=== PATIENT | male | born 1940 | race Caucasian/White ===

== ENCOUNTER 2017-05-07 21:32 | Inpatient (IN) | payer MEDICARE, BC ==
[~2017-05-07] VITALS: Ht 182.9 cm; Wt 100.0 kg
[~2017-05-07 21:32] MED LIST: ACCOLATE10 MG PO; ALTACE5 M2 OR; ALTACE5 MG PO; ASPIRIN EC81 MG PO; ASPIRIN LOW DOS81 M2 PO; BABY ASPIRIN81 MG OR; BRILINTA90 MG PO; CALCIUM +1 PO; CALCIUM D- OR; CINNAMON500 MG OR; CO Q 10100 MG PO; CO Q-10100 MG PO; COUMADIN4 MG PO; EFFIENT10 MG PO; FERROUS SULF325 M2 PO; FERROUS SULFAT325 MG PO; FISH OIL1000 MG PO; FLAXSEED OIL1200 MG OR; GLIMEPIRIDE2 MG PO; GLYBURIDE1.25 MG OR; JANTOVEN7.5 MG; JANUVIA100 MG PO; LANOXIN0.25 MG OR; LEVOTHYROXIN50 MCG PO; LISINOPRIL20 MG PO; LORTAB 10 PO; Levaquin PO; METAN3 PO; METFORMIN500 M1 OR; METFORMIN500 M2 PO; METOPROLOL25 MG OR; MULTI VIT PO; OMEGA-1 PO; PANTOPRAZOLE SO40 MG PO; PLAVIX75 MG OR; PREVACID15 M1; PREVACID30 M3 PO; PRILOSEC20 MG PO; PROSTAT1 PO; PROSTATE 2.4 PO; RAPAFLO8 MG PO; SMZ-TMP DS1 TAB PO; SOTALOL HCL80 MG PO; STOOL SOFTENER100 MG PO; SYNTHROID50 MCG PO; TENORMIN PO; VITAMIN B-12500 MCG PO; VITAMIN C1000 MG PO; WAL-ZYR10 MG PO; WARFARIN4 MG PO; ZINC50 M1 PO; ZITHROMAX250 MG PO
[2017-05-07] MEDS ORDERED: TAMSULOSIN0.4 MG PO (21:54)
[2017-05-07] MEDS ORDERED: VITAMIN D-31000 UNI1 PO (21:56)
[2017-05-07 22:12] LABS: HEMATOCRIT 45.4 % (39.0-50.0); HEMOGLOBIN 15.4 g/dl (14.0-18.0); IMMATURE GRANULOCYTES 0.3 % (0.0-1.0); MEAN CELL VOLUME 81.8 fL CALC (80.0-100.0); MEAN CORPUSCULAR HGB 27.7 pG CALC (26.0-32.0); MEAN CORPUSCULAR HGB CONC 33.9 g/L CALC (32.0-36.0); NEUT# 11.49 thou/uL (1.82-7.42); RED BLOOD COUNT 5.55 mill/uL (4.70-6.10); RED CELL DISTRI WIDTH 14.7 % (11.5-15.5)
[2017-05-07 22:22] LABS: ANION GAP 24 (6-22 (CALC)); BUN 18 mg/dL (8-23); BUN/CREATININE RATIO 14 (12-20 (CALC)); CARBON DIOXIDE 18 mmol/l (22-30); CHLORIDE 106 mmol/l (95-108); CREATININE 1.3 mg/dL (0.7-1.3); GFR 53 ML/MIN (>=60 (CALC)); GFR FOR AFR.AMER. > 60 ML/MIN (>=60 (CALC)); INFLUENZA A NONE DETECTED (NONE DETECT); INFLUENZA B NONE DETECTED (NONE DETECT); POTASSIUM 4.2 mmol/l (3.5-5.1); SODIUM 143 mmol/l (137-146)
[2017-05-07 23:22] LABS: URINE BILIRUBIN - DIPSTICK NEGATIVE (NEGATIVE); URINE BLOOD DIPSTICK SMALL (NEGATIVE); URINE COLOR YELLOW; URINE GLUCOSE - DIPSTICK NEGATIVE (NEGATIVE); URINE KETONE NEGATIVE (NEGATIVE); URINE LEUK ESTERASE NEGATIVE (NEGATIVE); URINE NITRITE - DIPSTICK NEGATIVE (Negative); URINE PH 5.5 (4.5-8.0); URINE PROTEIN - DIPSTICK 100 mg/dL (NEG-TRACE); URINE SPECIFIC GRAVITY >=1.030; URINE UROBILINOGEN - DIPSTICK 0.2 E.U./dL (0.2)
[2017-05-07 23:24] LABS: URINE CLARITY CLEAR
[2017-05-07 23:36] LABS: URINE BACTERIA FEW hpf; URINE RBC 0-2 RBC/hpf (0-5); URINE SQUAMOUS EPITHELIAL CELL FEW EPI/hpf (0-FEW); URINE WBC 0-2 WBC/hpf (0-5)
[2017-05-07 23:37] LABS: URINE FINE GRAN CAST FEW lpf; URINE HYALINE CAST FEW lpf (NONE-RARE); URINE MUCUS FEW hpf (NONE-FEW)
[2017-05-08] VITALS (13 sets, daily range): BP systolic 89–166; BP diastolic 50–79
[2017-05-08 07:23] LABS: HEMOGLOBIN 13.1 g/dl (14.0-18.0); MEAN CELL VOLUME 81.8 fL CALC (80.0-100.0); MEAN CORPUSCULAR HGB 27.5 pG CALC (26.0-32.0); MEAN CORPUSCULAR HGB CONC 33.6 g/L CALC (32.0-36.0); NEUT# 17.41 thou/uL (1.82-7.42); RED BLOOD COUNT 4.77 mill/uL (4.70-6.10); RED CELL DISTRI WIDTH 14.6 % (11.5-15.5)
[2017-05-08 07:37] LABS: ANION GAP 19 (6-22 (CALC)); BUN 18 mg/dL (8-23); BUN/CREATININE RATIO 15 (12-20 (CALC)); CARBON DIOXIDE 16 mmol/l (22-30); CHLORIDE 110 mmol/l (95-108); CREATININE 1.2 mg/dL (0.7-1.3); GFR 59 ML/MIN (>=60 (CALC)); GFR FOR AFR.AMER. > 60 ML/MIN (>=60 (CALC)); POTASSIUM 4.5 mmol/l (3.5-5.1); SODIUM 141 mmol/l (137-146)
[2017-05-09] VITALS (9 sets, daily range): BP systolic 132–171; BP diastolic 62–82
[2017-05-09 05:38] LABS: HEMATOCRIT 34.7 % (39.0-50.0); HEMOGLOBIN 11.7 g/dl (14.0-18.0); IMMATURE GRANULOCYTES 0.4 % (0.0-1.0); MEAN CORPUSCULAR HGB CONC 33.7 g/L CALC (32.0-36.0); NEUT# 11.97 thou/uL (1.82-7.42); RED BLOOD COUNT 4.18 mill/uL (4.70-6.10); RED CELL DISTRI WIDTH 15.1 % (11.5-15.5)
[2017-05-09 06:00] LABS: ANION GAP 15 (6-22 (CALC)); BUN 16 mg/dL (8-23); BUN/CREATININE RATIO 16 (12-20 (CALC)); CARBON DIOXIDE 20 mmol/l (22-30); CHLORIDE 113 mmol/l (95-108); CREATININE 1.1 mg/dL (0.7-1.3); GFR > 60 ML/MIN (>=60 (CALC)); GFR FOR AFR.AMER. > 60 ML/MIN (>=60 (CALC)); MAGNESIUM 1.6 mg/dL (1.6-2.3); POTASSIUM 4.1 mmol/l (3.5-5.1); SODIUM 144 mmol/l (137-146)
[2017-05-10 00:24] VITALS: BP 137/64
[2017-05-10 05:30] VITALS: BP 150/70
[2017-05-10 05:45] LABS: HEMATOCRIT 37.1 % (39.0-50.0); HEMOGLOBIN 12.4 g/dl (14.0-18.0); MEAN CELL VOLUME 83.2 fL CALC (80.0-100.0); MEAN CORPUSCULAR HGB 27.8 pG CALC (26.0-32.0); MEAN CORPUSCULAR HGB CONC 33.4 g/L CALC (32.0-36.0); RED BLOOD COUNT 4.46 mill/uL (4.70-6.10); RED CELL DISTRI WIDTH 14.8 % (11.5-15.5)
[2017-05-10 05:51] LABS: ANION GAP 16 (6-22 (CALC)); BUN 16 mg/dL (8-23); BUN/CREATININE RATIO 14 (12-20 (CALC)); CARBON DIOXIDE 22 mmol/l (22-30); CHLORIDE 106 mmol/l (95-108); CREATININE 1.1 mg/dL (0.7-1.3); GFR > 60 ML/MIN (>=60 (CALC)); GFR FOR AFR.AMER. > 60 ML/MIN (>=60 (CALC)); POTASSIUM 4.1 mmol/l (3.5-5.1); SODIUM 141 mmol/l (137-146)
[2017-05-10 10:14] VITALS: BP 147/73
[2017-05-10 11:00] VITALS: BP 154/74
[2017-05-10] MEDS ORDERED: ZITHROMAX500 MG PO (13:06)
[2017-05-10] MEDS ORDERED: AUGMENTIN875TAB PO (13:06)
[2017-05-10] MEDS ORDERED: FLORASTOR250 M1 PO (13:06)
[2017-05-10 15:08] VITALS: BP 141/73
[2017-05-10 15:43] VITALS: BP 144/73
== END 2017-05-10 16:57 | disposition home or self-care (01) | DRG 871 ==
LOC: ED 21:32 → ED-I 22:20 → ED 22:55 → ICU 22:56 → MS2 22:56
PROVIDERS: Family Medicine; ADMIT Internal Medicine; ATTEND Internal Medicine
DX: A41.9 Sepsis, unspecified organism (principal); J18.9 Pneumonia, unspecified organism; I11.0 Hypertensive heart disease with heart failure; I48.0 Paroxysmal atrial fibrillation; E11.9 Type 2 diabetes mellitus without complications; I50.22 Chronic systolic (congestive) heart failure; J02.0 Streptococcal pharyngitis; I16.0 Hypertensive urgency; E86.0 Dehydration; I25.10 Atherosclerotic heart disease of native coronary artery without angina pectoris; G47.33 Obstructive sleep apnea (adult) (pediatric); M19.90 Unspecified osteoarthritis, unspecified site; E78.5 Hyperlipidemia, unspecified; E03.9 Hypothyroidism, unspecified; K21.9 Gastro-esophageal reflux disease without esophagitis; Z95.5 Presence of coronary angioplasty implant and graft; Z87.891 Personal history of nicotine dependence; Z88.1 Allergy status to other antibiotic agents; Z79.899 Other long term (current) drug therapy; Z79.84 Long term (current) use of oral hypoglycemic drugs

== ENCOUNTER → 2017-12-27 | Outpatient (REF) | payer MEDICARE, BC ==
[~2017-12-27] MED LIST changes: +AUGMENTIN875TAB PO; +FLORASTOR250 M1 PO; +TAMSULOSIN0.4 MG PO; +VITAMIN D-31000 UNI1 PO; +ZITHROMAX500 MG PO
[2017-12-27 08:46] LABS: TSH, 3RD GENERATION 0.72 uIU/mL (0.47 - 4.68)
[2017-12-29 05:06] LABS: THYROID PEROXIDASE AB_i 9 IU/mL (<9)
== END | disposition home or self-care (01) ==
LOC: LAB 06:58
DX: E05.00 Thyrotoxicosis with diffuse goiter without thyrotoxic crisis or storm (principal)

== ENCOUNTER → 2018-06-02 | Outpatient (REF) | payer MEDICARE, BC ==
[2018-06-02 09:41] LABS: ALBUMIN 4.5 g/dL (3.2-5.0); BILIRUBIN, TOTAL 0.4 mg/dL (0.0-1.4); CHOLESTEROL HDL RATIO 7.3 (<4.4 (CALC)); CREATININE 1.7 mg/dL (0.7-1.3); POTASSIUM 4.4 mmol/l (3.5-5.1); TOTAL PROTEIN 7.5 g/dL (6.3-8.2)
[2018-06-02 10:12] LABS: TSH, 3RD GENERATION 3.27 uIU/mL (0.47 - 4.68)
== END | disposition home or self-care (01) ==
LOC: LAB 07:03
PROVIDERS: ATTEND Internal Medicine
DX: E03.9 Hypothyroidism, unspecified (principal); E55.9 Vitamin D deficiency, unspecified; E78.49 Other hyperlipidemia; I10 Essential (primary) hypertension; E11.65 Type 2 diabetes mellitus with hyperglycemia; E05.00 Thyrotoxicosis with diffuse goiter without thyrotoxic crisis or storm

== ENCOUNTER 2018-12-08 07:46 | Observation (INO) | payer MEDICARE, BC ==
[2018-12-08] VITALS (7 sets, daily range): BP systolic 110–161; BP diastolic 54–72
[~2018-12-08] VITALS: Ht 182.9 cm; Wt 102.0 kg
--- NOTE | 2018-12-08 07:48 | NUR ---
WHEELCHAIR TO ER ROOM 6, TO BED
[2018-12-08 08:09] LABS: HEMATOCRIT 41.1 % (39.0-50.0); HEMOGLOBIN 13.9 g/dl (14.0-18.0); IMMATURE GRANULOCYTES 0.4 % (0.0-5.0); MEAN CELL VOLUME 81.4 fL CALC (80.0-100.0); MEAN CORPUSCULAR HGB 27.5 pG CALC (26.0-32.0); MEAN CORPUSCULAR HGB CONC 33.8 g/L CALC (32.0-36.0); NEUT# 7.17 thou/uL (1.82-7.42); RED BLOOD COUNT 5.05 mill/uL (4.70-6.10); RED CELL DISTRI WIDTH 14.9 % (11.5-15.5)
[2018-12-08 08:36] LABS: ALBUMIN 4.6 g/dL (3.2-5.0); ALKALINE PHOSPHATASE 48 u/l (38-126); ANION GAP 18 (6-22 (CALC)); BILIRUBIN, TOTAL 0.5 mg/dL (0.0-1.4); BUN 19 mg/dL (8-23); BUN/CREATININE RATIO 17 (12-20 (CALC)); CARBON DIOXIDE 21 mmol/l (22-30); CHLORIDE 106 mmol/l (95-108); CREATININE 1.1 mg/dL (0.7-1.3); GFR > 60 ML/MIN (>=60 (CALC)); GFR FOR AFR.AMER. > 60 ML/MIN (>=60 (CALC)); LIPASE 255 u/l (23-300); POTASSIUM 4.6 mmol/l (3.5-5.1); SGOT/AST 37 u/l (19-48); SODIUM 140 mmol/l (137-146)
--- NOTE | 2018-12-08 08:50 | NUR ---
MEDICATED FOR HYPERRTENSION ORDERED AND WARRM BLANKET PROVIDED FOR COMFORT
[2018-12-08 09:35] LABS: URINE BILIRUBIN - DIPSTICK NEGATIVE (NEGATIVE); URINE BLOOD DIPSTICK TRACE-INTACT (NEGATIVE); URINE COLOR YELLOW; URINE GLUCOSE - DIPSTICK NEGATIVE (NEGATIVE); URINE KETONE NEGATIVE (NEGATIVE); URINE LEUK ESTERASE NEGATIVE (NEGATIVE); URINE NITRITE - DIPSTICK NEGATIVE (Negative); URINE PH 5.5 (4.5-8.0); URINE PROTEIN - DIPSTICK 100 mg/dL (NEG-TRACE); URINE SPECIFIC GRAVITY >=1.030; URINE UROBILINOGEN - DIPSTICK 0.2 E.U./dL (0.2)
--- NOTE | 2018-12-08 09:58 | NUR ---
PT AWARE OF PLANNED ADMISSION, OFFERS NO NEW COMPLAINTS, CALL VALDERRAMA WITHIN REACH ROOM ADN TELE BOX ASSIGNED
[2018-12-08] MEDS ORDERED: LISINOPRIL20 MG PO (10:08)
[2018-12-08] MEDS ORDERED: ZYRTEC10 MG PO (10:09)
--- NOTE | 2018-12-08 10:47 | NUR ---
REPORT CALLED TO BABAK DEVINE ON MED SURG
--- NOTE | 2018-12-08 10:55 | NUR ---
PT TRANSPORTED TO [facility] VIA WC ACCOMPIANED BY JONNIE PUCKETT. PT AMBULATED W/ STEADY GAIT. VS DONE. PT A/O X3. SPEECH IS CLEAR. RESP EVEN AND UNLABORED. LUNG SOUNDS CLEAR. TELE IN PLACE. BOWEL SOUNDS ACTIVE X4. PT C/O LUQ ABDOMINAL DISCOMFORT. REPOSITIONED FOR COMFORT. STRONG RADIAL AND PEDAL PULSES. #20 RAC SL. FLUSHED AND PATENT. SITE APPEARS HEALTHY. SKIN INTACT. PT DENIES ANY FURTHER NEEDS. POC DISCUSSED. SAFETY PRECUATIONS IN PLACE. CALL LIGHT IN REACH. WILL CONTINUE TO MONITOR.
--- NOTE | 2018-12-08 10:55 | NUR ---
PT TRANSPORTED TO ROOM 262 VIA WHEELCHAIR, ALL BELONGINGS SENT WITH PT AND TELE BOX [id number] ON PT.
--- NOTE | 2018-12-08 11:15 | NUR ---
ORTHOSTATIC BP COMPLETED ON PT DUE TO PT C/O DIZZINESS WHEN TURNING HEAD AND DIZZINESS PRIOR TO COMING TO HOSPITAL. INSTRUCTED PT TO CALL BEFORE GETTING OUT OF BED; PT VERBALIZES UNDERSTANDING.
--- NOTE | 2018-12-08 12:10 | NUR ---
PT EATING LUNCH ON SIDE OF BED. NO C/O PAIN OR NEEDS. CALL LIGHT IN REACH. WILL CONTINUE TO MONITOR.
[2018-12-08 12:28] LABS: URINE SQUAMOUS EPITHELIAL CELL FEW EPI/hpf (0-FEW)
--- NOTE | 2018-12-08 16:11 | NUR ---
PT RESTING. NO C/O PAIN OR NEEDS. CALL LIGHT IN REACH. WILL CONTINUE TO MONITOR.
--- NOTE | 2018-12-08 16:33 | NUR ---
CALLED DOWN TO OPERATING ROOM REGARDING CONSULTATION ON THIS PT. DR. CHAUHAN WAS NOTIFIED FROM NIKHIL SHAVER IN OR. GAVE HER PT INFO AND WAS TOLD SHE WILL PASS ALONG MESSAGE TO HIM HE IS IN A CASE RIGHT NOW.
--- NOTE | 2018-12-08 19:10 | NUR ---
REPORT FROM BABAK DEVINE. PT SITTING UP IN BED WATCHING TV. NO APPARENT DISTRESS NOTED. PT DENIES ANY PAIN OR DISCOMFORT. IV SITE APPEARS HEALTHY. DISCUSSED POC. PT VERBALIZED UNDERSTANDING. CALL LIGHT WITHIN REACH. WILL CONTINUE TO MONITOR.
--- NOTE | 2018-12-08 23:18 | NUR ---
PT RESTING IN BED WITH EYES CLOSED. EASILY AROUSED. NO APPARENT DISTRESS NOTED. VS STABLE. DENIES ANY PAIN OR DISCOMFORT. CALL LIGHT WITHIN REACH. WILL CONTINUE TO MONITOR.
--- NOTE | 2018-12-09 03:57 | NUR ---
PT RESTING IN BED WITH EYES CLOSED. NO APPARENT DISTRESS NOTED. RESPIRATIONS EVEN AND UNLABORED. CALL LIGHT WITHIN REACH. WILL CONTINUE TO MONITOR.
[2018-12-09 04:59] VITALS: BP 119/61
[2018-12-09 05:35] LABS: CHOLESTEROL HDL RATIO 6.4 (<4.4 (CALC)); MAGNESIUM 1.5 mg/dL (1.6-2.3)
--- NOTE | 2018-12-09 06:45 | NUR ---
REPORT RECEIVED. PT RESTING IN BED. WILL CONTINUE TO MONITOR
[2018-12-09 07:30] VITALS: BP 123/64
--- NOTE | 2018-12-09 07:30 | NUR ---
PT RESTING IN BED AWAKE. PT IS ALERT AND ORIENTED X3. SHIFT ASSESSMENT COMPLETED AT THIS TIME. IV PATENT X1. CALL LIGHT IN REACH. WILL CONTINUE TO MONITOR.
--- NOTE | 2018-12-09 09:20 | NUR ---
Monet ANDRADE APRN AT BEDSIDE TO DISCUSS PLAN OF CARE
[2018-12-09 11:05] VITALS: BP 121/63
--- NOTE | 2018-12-09 11:33 | NUR ---
PT SITTING UP IN BED EATING LUNCH. RESP ARE EVEN AND UNLABORED. NO DISTRESS NOTED. CALL LIGHT IN REACH. WILL CONTINUE TO MONITOR.
--- NOTE | 2018-12-09 12:04 | NUR ---
DR DILL AT BEDSIDE AT THIS TIME TO DISCUSS PLAN OF CARE
[2018-12-09] MEDS ORDERED: TRICOR145 MG PO (12:11)
--- NOTE | 2018-12-09 13:00 | NUR ---
IV site discontinued, cath intact. No edema , no redness, voices no discomfort.
--- NOTE | 2018-12-09 13:40 | NUR ---
DISCHARGE INSTRUCTIONS REVIEWED WITH PATIENT. PATIENT VERBALIZED UDNERSTANDING.
--- NOTE | 2018-12-09 13:44 | NUR ---
Discharge instructions given. Patient verbalizes understanding of same. Discharged in stable condition via Wheelchair to Home with family. All belongings sent with pt.
== END 2018-12-09 13:44 | disposition home or self-care (01) ==
LOC: ED 07:46 → ED-I 09:29 → ED 09:44 → MS2 09:45
PROVIDERS: Family Medicine; ADMIT Internal Medicine; ATTEND Internal Medicine
DX: K80.20 Calculus of gallbladder without cholecystitis without obstruction (principal); I10 Essential (primary) hypertension; E11.9 Type 2 diabetes mellitus without complications; I25.10 Atherosclerotic heart disease of native coronary artery without angina pectoris; I48.91 Unspecified atrial fibrillation; E03.9 Hypothyroidism, unspecified; K21.9 Gastro-esophageal reflux disease without esophagitis; M19.90 Unspecified osteoarthritis, unspecified site; E78.1 Pure hyperglyceridemia; G47.33 Obstructive sleep apnea (adult) (pediatric); Z95.5 Presence of coronary angioplasty implant and graft; Z79.84 Long term (current) use of oral hypoglycemic drugs; Z87.891 Personal history of nicotine dependence; R07.9 Chest pain, unspecified

== ENCOUNTER 2019-04-24 14:16 | Inpatient (IN) | payer MEDICARE, BC ==
[~2019-04-24] VITALS: Ht 182.9 cm; Wt 96.6 kg
[~2019-04-24 14:16] MED LIST changes: +TRICOR145 MG PO; +ZYRTEC10 MG PO
--- NOTE | 2019-04-24 14:26 | NUR ---
PT TO ROOM VIA WC
[2019-04-24 14:52] LABS: HEMATOCRIT 42.7 % (39.0-50.0); IMMATURE GRANULOCYTES 0.7 % (0.0-5.0); MEAN CELL VOLUME 80.1 fL CALC (80.0-100.0); MEAN CORPUSCULAR HGB 26.3 pG CALC (26.0-32.0); MEAN CORPUSCULAR HGB CONC 32.8 g/L CALC (32.0-36.0); NEUT# 5.88 thou/uL (1.82-7.42); RED BLOOD COUNT 5.33 mill/uL (4.70-6.10); RED CELL DISTRI WIDTH 15.2 % (11.5-15.5)
[2019-04-24 15:12] LABS: ANION GAP 17 (6-22 (CALC)); BUN 19 mg/dL (8-23); BUN/CREATININE RATIO 16 (12-20 (CALC)); CARBON DIOXIDE 21 mmol/l (22-30); CHLORIDE 101 mmol/l (95-108); CREATININE 1.2 mg/dL (0.7-1.3); GFR 58 ML/MIN (>=60 (CALC)); GFR FOR AFR.AMER. > 60 ML/MIN (>=60 (CALC)); POTASSIUM 4.7 mmol/l (3.5-5.1); SODIUM 134 mmol/l (137-146)
--- NOTE | 2019-04-24 15:45 | NUR ---
PT PRESENTS WITH PAIN 5-6 WEAKS AGO HE STARTED TO FEEL WEAK AND NOTICED PALLOR IN SKIN COLOR. PT STATES THE SYMPTOMS PROGRESSED THIS MORNING. PT DAUGHTERS STATED HE COULD NOT EVEN WORK. UPON ARRIVAL PT HAD SYMPTOMS OF CRAMPS IN LEGS BILATERALLY. PT HAD A BP WITH SYSTOLIC IN THE 200-210. PT APPEARS TO HAVE SKIN COLOR WNL AND IS AOX4. TORADOL GIVIN FOR PAIN OF CRAMPS. PT NOTIFIED OF BUSY ER AND WAIT TIME. FAMILY AND PT VERBALIZED UNDERSTANDING.
--- NOTE | 2019-04-24 16:30 | NUR ---
COLLECTED URINE. PT WAS SITTING UP IN STRETCHER. EQUIPMENT ATTACHED. PT DENIES ANY OTHER NEEDS. PT ADVISED OF CONTINUED WAIT TIME.
[2019-04-24 16:59] LABS: URINE BILIRUBIN - DIPSTICK NEGATIVE (NEGATIVE); URINE BLOOD DIPSTICK MODERATE (NEGATIVE); URINE COLOR YELLOW; URINE GLUCOSE - DIPSTICK 250 mg/dL (NEGATIVE); URINE KETONE NEGATIVE (NEGATIVE); URINE LEUK ESTERASE NEGATIVE (NEGATIVE); URINE NITRITE - DIPSTICK NEGATIVE (Negative); URINE PH 5.5 (4.5-8.0); URINE PROTEIN - DIPSTICK 100 mg/dL (NEG-TRACE); URINE SPECIFIC GRAVITY >=1.030; URINE UROBILINOGEN - DIPSTICK 0.2 E.U./dL (0.2)
--- NOTE | 2019-04-24 17:06 | NUR ---
PT BP HAS LOWERED TO 178/81 MD NOTIFIED. PT IS SITTING UP IN BED TALKING TO FAMILY WHO ARE AT BEDSIDE. CALL LIGHT WITHIN REACH
[2019-04-24 17:12] LABS: URINE WBC 0-2 WBC/hpf (0-5)
[2019-04-24 17:47] LABS: TSH, 3RD GENERATION 3.86 uIU/mL (0.47 - 4.68)
--- NOTE | 2019-04-24 18:04 | NUR ---
ADMINISTERED LABATALOL AND PT TOLERATED WELL. AFTER 10 MINS A REACHECK WILL BE DONE TO SEE IF IT WAS EFFECTIVE
--- NOTE | 2019-04-24 18:39 | NUR ---
MD IN ROOM TALKING TO PT ABOUT BP THAT DOES NOT WANT TO GO DOWN DISPITE MEDICATION. PT IS NOTIFIED OF PENDING ADMISSION
--- NOTE | 2019-04-24 19:37 | NUR ---
PT CONTINUES TO HAVE HIGH BP AND MD ORDERED ANOTHER DOSE OF LABETALOL. WILL ASSESS LATER FOR CHANGE. PT STATED A PAIN 09/28, MD WAS NOTIFIED SINCE IT COULD ALSO CONTRIBUTE TO BP. PT ORDERED PAIN MED.
--- NOTE | 2019-04-24 20:25 | NUR ---
IT WAS NOTIFIED THAT A BED WAS NOT READY FOR PT OF YET. [employer] APPRENTICE STATED THAT WE WILL BE NOTIFIED SOON IT IS AVAILIABLE
--- NOTE | 2019-04-24 20:33 | NUR ---
SOCKS PLACED ON PT AND SOME WARM BLANKETS APPLIED. PT DENIES ANY FURTHER NEEDS. CALL LIGHT AND PHONE WITHIN REACH
--- NOTE | 2019-04-24 21:37 | NUR ---
PT ADVISED OF PENDING ADMISSION. CALL LIGHT WITHIN REACH. PT REPOSITIONED IN BED
--- NOTE | 2019-04-24 22:11 | NUR ---
REPORT JOB SUNSHINE IN MED SURG
--- NOTE | 2019-04-24 22:15 | NUR ---
PT TRANSPORTED TO MED SURG VIA W/C STABLE AND IN NO DISTRESS. CARE ASSUMED TO MARIO
[2019-04-24 22:21] VITALS: BP 190/73
[2019-04-24 23:13] VITALS: BP 192/88
--- NOTE | 2019-04-24 23:30 | NUR ---
PATIENT ADMITTED FROM ER VIA WHEELCHAIR WITH ER STAFF IN ATTENDANCE. PATIENT TO STANDING SCALE AND THEN TO BED. UNSTEADY ON HIS FEET. PATIENT IS AWAKE ALERT AND ORIENTED, BP IS ELEVATED AND APRESOLINE 10MG IVP GIVEN FOR HTN. TEMP-99.1 AT THIS TIME. PATIENT WITH SHAKES AND CHILLS AT THIS TIME. C/O BLE AND BACK PAIN. PATIENT STATES THAT HE WAS BROUGHT TO THE ER TOODAY BY HI DAUGHTERS AFTER FEELING SEVERE WEAKNESS. WAS SEEN AT CLINIC ON WEDNESDAY BUT CONT TO FEEL EVEN WORSE. PATIENT WITH TELE MONITOR IN PLACE. IV SITE TO RIGHT FOREARM IS INTACT AND HELATHY AT THIS TIME. PATIENT ORIENTED TO ROOM AND SURROUNDINGS. INSTRUTED ON USE OF NURSE CALL LIGHT SYSTEM, TV REMOTE AND PHONE. SAFETY PRECAUTIONS REINFORCED. OFFERED FOOD AND FLUIDS. DECLINES AT THIS TIME.CALL LIGHT IN REACH. WILL CONT TO MONITOR.
--- NOTE | 2019-04-25 00:30 | NUR ---
BP REMAINS ELEVATED. TEMP 101.7-STILL WITH SEVERE PAIN. CALL TO DR. WASSERMAN WITH UPDATE-NEW ORDERS RECIEVED. BLOOD CULTURES WERE DRAWN. 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 PATIENT PLACED ON CONTACT FOR H/O MRSA. IVF STARTED AND INFUSING RIGHT FOREARM AT 75CC/HR. SITE IS HEALTHY AT THIS TIME. MORPHINE 2MG IVP GIVEN FOR DIONE LEG PAIN-10/29. PATIENT MEDICATED FOR HTN WITH CLONODINE 0.1MG PO WITH TYLENOL 650MG PO FOR TEMP. PATIENT VOIDING QS 150CC OF LUCERO URINE IN URINAL FOR HTN. SAFETY PREAUTIONS REINFORCED. CALL LIGHT IN REACH. WILL CONT TO MONITOR.
[2019-04-25 01:57] VITALS: BP 106/53
--- NOTE | 2019-04-25 02:00 | NUR ---
PATIENT RESTING IN BED. APPEAR SLEEPING AT THIS TIME. TEMP IS 98.4 AT THIS TIME. BP DOWN TO 106/53. IVF PATENT ANDINFUSING AT 75CC/HR VIA RIGHT FOREARM SITE. TELE MONITOR IN PLACE. CALL LIGHT IN REACH. WILL CONT TO MONITOR.
[2019-04-25 03:43] VITALS: BP 151/65
[2019-04-25 05:40] LABS: HEMOGLOBIN 12.9 g/dl (14.0-18.0); IMMATURE GRANULOCYTES 0.9 % (0.0-5.0); MEAN CELL VOLUME 79.9 fL CALC (80.0-100.0); MEAN CORPUSCULAR HGB 26.4 pG CALC (26.0-32.0); MEAN CORPUSCULAR HGB CONC 33.1 g/L CALC (32.0-36.0); NEUT# 9.45 thou/uL (1.82-7.42); RED BLOOD COUNT 4.88 mill/uL (4.70-6.10); RED CELL DISTRI WIDTH 15.2 % (11.5-15.5)
[2019-04-25 06:01] LABS: ANION GAP 19 (6-22 (CALC)); BUN 20 mg/dL (8-23); BUN/CREATININE RATIO 15 (12-20 (CALC)); CARBON DIOXIDE 19 mmol/l (22-30); CHLORIDE 102 mmol/l (95-108); CREATININE 1.3 mg/dL (0.7-1.3); GFR 53 ML/MIN (>=60 (CALC)); GFR FOR AFR.AMER. > 60 ML/MIN (>=60 (CALC)); POTASSIUM 4.6 mmol/l (3.5-5.1); SODIUM 135 mmol/l (137-146)
--- NOTE | 2019-04-25 06:37 | NUR ---
PATIENT RESTING IN BED-FEELING MUCH BETTER. PAIN IS DOWN TO LEGS. BP151/65, TEMP IS 99.0. IVF CONT TO INFUSE LEFT FOREARM SITE AT 75CC/HR. TELE MONITOR IN PLACE. VOIDING LUCERO URINE IN URINAL. SAFETY PRECAUTIONS REINFORCED. ALL LIGHT IN REACH. WILL CONT TO MONITOR.
[2019-04-25 07:29] VITALS: BP 145/71
--- NOTE | 2019-04-25 09:00 | NUR ---
PT AWAKE, ALERT, ORIENTED X 3. LUNGS CLEAR, RA. PT UNCOMFORTABLE WITH LEG PAIN, BUT DID NOT WANT MEDICATION AT THIS TIME. TEMP 99.7. PT DENIES KNOWING THAT HE HAD MRSA TO ANY WOUND OF HIS, WILL CHECK FOR THE NARE CULTURE RESULT.
[2019-04-25 11:33] VITALS: BP 160/66
[2019-04-25 15:20] VITALS: BP 117/52
--- NOTE | 2019-04-25 16:20 | NUR ---
PT HAS BEEN REFUSING MEALS SINCE ARRIVAL, STATES THAT HE IS NOT HUNGRY. PT SEEN RESTING IN THE BED. VISITORS INTERMITTENTLY.
[2019-04-25 18:45] VITALS: BP 156/78
--- NOTE | 2019-04-25 20:00 | NUR ---
PATIENT RESTING IN BED WITH DAUGHTER AT BEDSIDE.AWAKE ALERT AND ORIENTEDX3. PATIENT AND DAUGHTER NOW AWARE PATIENT IS STREP A POSTIVE. PATIENT ON CONTACT AND DROPLET PRECAUTIONS OF H/O MRSA AND DROPLET-VERBALIZE UNDERSTANDING. TELE MONITOR IN PLAE. IV SITE TO RIGHT FOREARM INTAT WITH IVF NS PATENT AND INFUSING AT 75CC/HR, SITE IS HEALTHY AT THIS ITME,.APPETITE POOR. EYES ARE RED. VOIDING LUCERO URINE IN URINAL. LAST BM WAS 04/24. ABD DISTENDED BUT SOFT WITH ACTIVE BS. NO PEDAL EDEMA NOTED, PUSES ARE PALPABLE. AFEBRILE. 3AREAS TO LEFT FLANK/BACK IRRITATED-RED, RAISED, NOT FLUID FILLED. CONT TO C/O OF SEVERE PAIN TO BLE-MEDIATED WITH MORPHINE 2MG IVP FOR PAIN. SAFETY PREAUTIONS REINFORCED. CALL LIGHT IN REACH. WILL CONT TO MONITOR.
--- NOTE | 2019-04-25 20:00 | NUR ---
PATIENT RESTING IN BED AT THIS TIME WITH DAUGHTER AT BEDSIDE. PATIENT IS AWAKE ALERT AND ORIENTEDX3. PATIENT AND DAUGHTER NOW AWARE THAT PATIENT IS INFLUENZA A POSITIVE-ON CONTACT FOR MRSA AND NOW DROPLET PRECAUTIONS FOR INFLUENZA. BOTH VERBALIZE UNDERSTANDING. PATIENT WITH TELE MONITOR IN PLACE. IVF NS PATENT AND INFUSING VIA RIGHT FOREARM SITE AT 75CC/HR. SITE IS HEALTHY AT THIS TIME. VOIDED 250CC OF LUCERO URINE IN URINAL. LAST BM WAS 04/24. ABD IS DISTENDED BUT SOFT WITH ACTIVE BS PRESENT. NO PEDAL EDEMA AND PULSES ARE PRESENT. AFEBRILE AT THIS ITME. PATIENT WITH 3 SMALL AREAS OF IRRITATION- REDNESS, SLIGHTLY RAISED-NO DRAINAGE, NOT FLUID FILED TO LLEFT FLANK/BACK. WILL CONT TO MONITOR. SAFETY PRECAUTIONS REINFORCED. CALL LIGHT IN REACH. WILL CONT TO MONITOR.
--- NOTE | 2019-04-25 23:57 | NUR ---
PATIENT RESTING IN BED-C/O 11/29 BLE PAIN. MEDICATED WITH MORPHING 2MG IVP FOR PAIN. IV SITE TO RIGHT FOREARM INTACT WITH IVF PATENT AND INFUING AT 75CC/HR. SITE REMAINS HEATHY AT THIS TIME. ZOSYN HUNG ORDERED. VOIDING QS LUCERO URINE IN URINAL. SAFETY PRECAUTIONS REINFORCED. CALL LIGHT IN REACH. WILL CONT TO MONITOR.
[2019-04-26 03:40] VITALS: BP 143/62
--- NOTE | 2019-04-26 03:40 | NUR ---
PATIENT RESTING IN BED AT THIS TIME-APPEARS SLEEPING WITH EYES CLOSED. RESP ARE EVEN AND UNLABORED. IVF PATENT AND INFUSING VIA RIGHT FOREARM SITE AT 75CC/HR. TELE MONITOR IN PLACE. CALL LIGHT IN REACH. WILL CONT TO MONITOR.
[2019-04-26 05:08] LABS: HEMATOCRIT 37.7 % (39.0-50.0); HEMOGLOBIN 12.3 g/dl (14.0-18.0); IMMATURE GRANULOCYTES 0.6 % (0.0-5.0); MEAN CELL VOLUME 80.9 fL CALC (80.0-100.0); MEAN CORPUSCULAR HGB 26.4 pG CALC (26.0-32.0); MEAN CORPUSCULAR HGB CONC 32.6 g/L CALC (32.0-36.0); NEUT# 6.85 thou/uL (1.82-7.42); RED BLOOD COUNT 4.66 mill/uL (4.70-6.10); RED CELL DISTRI WIDTH 15.3 % (11.5-15.5)
[2019-04-26 05:29] LABS: CREATININE 1.4 mg/dL (0.7-1.3); MAGNESIUM 1.5 mg/dL (1.6-2.3); POTASSIUM 4.3 mmol/l (3.5-5.1)
[2019-04-26 08:00] VITALS: BP 142/71
--- NOTE | 2019-04-26 08:00 | NUR ---
ASSESSMENT IS COMPLETED: IV SITE IS FREE FROM REDNESS OR EDEMA. HR IS REG,PULSES ARE STRONG X4, ABD IS SOFT WITH ACTIVE BS. BREATH SOUNDS ARE CLEAR,BILATERALLY,TELE MONITOR IN PLACE. 3 RED SPOTS ON LEFT SIDE OF HIS BACK. CONTINUE TO OBSERVE AND MONITOR.
[2019-04-26 11:47] VITALS: BP 145/60
--- NOTE | 2019-04-26 12:15 | NUR ---
PTI S RELAXING IN BED WITH NO DISTRESS NTOED. IV SITE IS FREE FROM REDNESS OR EDEMA. CONTINUE TO OBSERVE AND MONITOR.
--- NOTE | 2019-04-26 13:52 | NUR ---
INFECTION DISEASE DR CALLED AND SPOKE WITH PT. NO NEW ORDERS AT PRESENT
[2019-04-26 16:10] VITALS: BP 154/86
--- NOTE | 2019-04-26 16:15 | NUR ---
PT IS RELAXING IN BED WITH NO DISTRESS NOTED IV SITE ISF REE FROM REDNESS OR EDEMA.
[2019-04-26 18:59] VITALS: BP 161/79
--- NOTE | 2019-04-26 20:00 | NUR ---
PATIENT SITTING ON THE SIDE OF THE BED EATING SMALL AMT OF THE MEAL THAT HIS DAUGHTER BROUGHT IN FOR HIM. PATIENT REMAINS ON CONTACT AND DROPLET PRECAUTIONS FOR MRSA AND STREP. PATIENT CONT TO COMPLAIN OF DIONE LE PAIN AND HEADACHE. MEDICTED WITH LORTAB ORDERED FOR PAIN. IVF NS PATENT AND INFUSING VIA RIGHT FOREARM SITE AT 75CC/HR. SITE REMAINS HEALTHY. VOIDING LUCERO URINE IN URINAL. STATE THAT HE HAD LARGE BROWN STOOL TODAY. TELE MONITOR IN PLACE. EYES ARE RED. PATIENT CONT TO HAVE 2-3 AREA'S OF RED RASH TO LEFT SIDE OF BACK-NO BLISTER, NO DRAINAGE AT THIS TIME. SAFETY PRECAUTIONS REINFORCED. CALL LIGHT IN REACH. WILL CONT TO MONITOR.
--- NOTE | 2019-04-26 23:00 | NUR ---
PATIEMT POSITIONED ON HIS SIDE-APPEARS SLEEPING WITH EYES CLOSED. TELE MONITOR INPLACE. IVFF PATENT AND INFUSING VIA RIGHT FOREARM SITE AT 75CC/HR. CALL LIGHT IN REACH. WILL CONT TO MONITOR.
[2019-04-26 23:39] VITALS: BP 140/68
--- NOTE | 2019-04-27 03:51 | NUR ---
APPEARS SLEEPING AT THIS TIME POSITIONED ON SIDE WITH EYES CLOSED. RESP ARE EVEN AND UNLABORED. IVF PATENT AND INFUSING VIA RIGHT FOREARM SITE. CALL LIGHT IN REACH. WILL CONT TO MONITOR.
[2019-04-27 04:08] VITALS: BP 150/75
[2019-04-27 05:14] LABS: HEMATOCRIT 36.5 % (39.0-50.0); HEMOGLOBIN 11.7 g/dl (14.0-18.0); IMMATURE GRANULOCYTES 0.5 % (0.0-5.0); MEAN CELL VOLUME 81.5 fL CALC (80.0-100.0); MEAN CORPUSCULAR HGB 26.1 pG CALC (26.0-32.0); MEAN CORPUSCULAR HGB CONC 32.1 g/L CALC (32.0-36.0); NEUT# 5.83 thou/uL (1.82-7.42); RED BLOOD COUNT 4.48 mill/uL (4.70-6.10); RED CELL DISTRI WIDTH 15.2 % (11.5-15.5)
[2019-04-27 05:27] LABS: ANION GAP 15 (6-22 (CALC)); BUN 16 mg/dL (8-23); BUN/CREATININE RATIO 13 (12-20 (CALC)); CARBON DIOXIDE 20 mmol/l (22-30); CHLORIDE 104 mmol/l (95-108); CREATININE 1.3 mg/dL (0.7-1.3); GFR 53 ML/MIN (>=60 (CALC)); GFR FOR AFR.AMER. > 60 ML/MIN (>=60 (CALC)); MAGNESIUM 1.8 mg/dL (1.6-2.3); POTASSIUM 4.1 mmol/l (3.5-5.1); SODIUM 135 mmol/l (137-146)
[2019-04-27 09:34] VITALS: BP 165/76
[2019-04-27 11:00] VITALS: BP 150/64
[2019-04-27 14:55] VITALS: BP 144/71
--- NOTE | 2019-04-27 17:00 | NUR ---
PATIENT A/OX4, NO S/S RESP DISTRESS, NO C/O PAIN, PATIENT TOLERATE ANTIBOTICS, PATIENT ELEVATED DECREASE TO WNL AFTER TYLENOL GIVEN, WILL CONTINUE TO MONITOR PATIENT CALL LIGHT WITHIN REACH
[2019-04-27 19:10] VITALS: BP 168/80
--- NOTE | 2019-04-27 19:10 | NUR ---
CHANGE OF SHIFT REPORT RECEIVED FROM JONNIE WILEY. PT IN ROOM SITTING UP ON SIDE OF BED. 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
[2019-04-27 23:56] VITALS: BP 162/68
--- NOTE | 2019-04-28 | NUR ---
PATIENT COMPLAIN OF PAIN LEVEL OF 8 TO 9/10 ON LEGS, KOWER BACK, AND HEAD. ER DOCTOR ZEFERINO NOTIFIED. ORDER RECEIVED FOR TORADOL AND NORFLEX. ORDERS FAXED TO [facility]. [id number]--PATIENT SCANNED WITH NAME AND VERIFICATION; MEDICATIONS SCANNED. COMPUTER SHUT DOWN. EMAR STUCK. MIS NOTIFIED. [id number]--EMAR IS NOW WORKING. PARACHUTE CROWN SEWER DOCUMENTING AT THIS TIME.
[2019-04-28 04:09] VITALS: BP 159/75
--- NOTE | 2019-04-28 04:15 | NUR ---
PATIENT RESTING WELL. EYES CLOSED, RESPIRATION EVEN AND ULABORED
[2019-04-28 05:46] LABS: HEMATOCRIT 36.1 % (39.0-50.0); HEMOGLOBIN 11.8 g/dl (14.0-18.0); MEAN CELL VOLUME 81.1 fL CALC (80.0-100.0); MEAN CORPUSCULAR HGB 26.5 pG CALC (26.0-32.0); MEAN CORPUSCULAR HGB CONC 32.7 g/L CALC (32.0-36.0); RED BLOOD COUNT 4.45 mill/uL (4.70-6.10); RED CELL DISTRI WIDTH 15.2 % (11.5-15.5)
[2019-04-28 06:07] LABS: ANION GAP 13 (6-22 (CALC)); BUN 14 mg/dL (8-23); BUN/CREATININE RATIO 12 (12-20 (CALC)); CARBON DIOXIDE 21 mmol/l (22-30); CHLORIDE 106 mmol/l (95-108); CREATININE 1.2 mg/dL (0.7-1.3); GFR 58 ML/MIN (>=60 (CALC)); GFR FOR AFR.AMER. > 60 ML/MIN (>=60 (CALC)); MAGNESIUM 1.6 mg/dL (1.6-2.3); SODIUM 136 mmol/l (137-146)
--- NOTE | 2019-04-28 07:30 | NUR ---
PATIENT A/OX4, NO C/O PAIN, NO S/S RESP DISTRESS, PATIENT ON ROOM AIR, PATIENT BLOOD GLUCOSE LEVEL 123, PATIENT HEART RHYTHM IN NORMAL SINUS, PATIENT IVF INFUSING WITH COMPLICATIONS, NEURO CHECK NEGATIVE, CALL LIGHT WITHIN REACH
[2019-04-28 07:43] VITALS: BP 166/90
[2019-04-28 11:00] VITALS: BP 168/75
--- NOTE | 2019-04-28 12:26 | NUR ---
PATIENT SITTING UP IN CHAIR EATING LUNCH, PATIENT NO C/O PAIN, NO S/S RESP DISTRESS, PATIENT ON ROOM AIR, PATIENT BLOOD PRESSURE ELEVATED TREATED ELEVATED WITH PRN MED, PATIENT HEART RHYTHM IN NORMAL SINUS RHYTHM, PATIENT TOLERATING ANTIBOTICS, WILL RE EVALUATE BLOOD PRESSURE, CALL LIGHT WITHIN REACH
[2019-04-28] MEDS ORDERED: AMOX/K CLAV875 M1 PO (12:36)
[2019-04-28 14:32] VITALS: BP 147/60
--- NOTE | 2019-04-28 14:40 | NUR ---
PATIENT A/OX4, NO C/O PAIN, NO S/S RESP DISTRESS, PATIENT ON ROOM AIR, PATIENT AFEBRILE, PRN BLOOD PRESSURE MED WAS EFFECTIVE, PATIENT BLOOD PRESSURE DECREASE, MD DISCHARGE PATIENT TO HOME SELF CARE, EDUCATED THE PATIENT DISCHARGE INSTRUCTIONS PATIENT VERBALIZE HE UNDERSTOOD DISCHARGED INSTRUCTIONS, IV AND TELE MONITOR REMOVED FROM PATIENT, PATIENT LEFT FLOOR VIA WHEELCHAIR ACCOMPANIED BY STAFF AND FAMILY MEMBERS
[2019-08-29] MEDS ORDERED: LEVOTHYROXIN50 MC1 PO (07:56)
[2019-08-29] MEDS ORDERED: PROSTATE 2.4 PO (07:57)
[2019-08-29] MEDS ORDERED: METFORMIN500 M2 PO (07:58)
[2019-08-29] MEDS ORDERED: METAN3 PO (07:59)
[2019-08-29] MEDS ORDERED: MEDDOSEPAK PO (08:16)
[2019-08-29] MEDS ORDERED: WAL-ZYR10 M2 PO (08:44)
[2019-08-29] MEDS ORDERED: SLOW-MAG PO (08:45)
== END 2019-04-28 14:34 | disposition home or self-care (01) | DRG 872 ==
LOC: ED 14:16 → ED-I 18:25 → ED 18:41 → ICU 18:42 → MS2 18:42
PROVIDERS: Family Medicine; Nurse Practitioner Family; ADMIT Internal Medicine; ATTEND Internal Medicine
DX: A41.9 Sepsis, unspecified organism (principal); I48.20 Chronic atrial fibrillation, unspecified; I16.0 Hypertensive urgency; J02.0 Streptococcal pharyngitis; R21 Rash and other nonspecific skin eruption; I10 Essential (primary) hypertension; I25.10 Atherosclerotic heart disease of native coronary artery without angina pectoris; E11.9 Type 2 diabetes mellitus without complications; E78.5 Hyperlipidemia, unspecified; M47.816 Spondylosis without myelopathy or radiculopathy, lumbar region; M47.814 Spondylosis without myelopathy or radiculopathy, thoracic region; G47.33 Obstructive sleep apnea (adult) (pediatric); E03.9 Hypothyroidism, unspecified; Z87.891 Personal history of nicotine dependence; Z95.5 Presence of coronary angioplasty implant and graft; Z79.84 Long term (current) use of oral hypoglycemic drugs
CPT/HCPCS: G0378; J1650; J3475; Q3014

== ENCOUNTER → 2020-11-21 | Day surgery (SDC) | payer MEDICARE, BC ==
[~2020-11-21] MED LIST changes: +AMOX/K CLAV875 M1 PO; +BL MAGNESIUM250 MG PO; +LEVOTHYROXIN50 MC1 PO; +MEDDOSEPAK PO; +SLOW-MAG PO; +WAL-ZYR10 M2 PO
[2020-11-21 08:53] VITALS: BP 141/68
== END | disposition home or self-care (01) ==
LOC: ENDO 06:49 → ORM 08:00 → ENDO 08:00
PROVIDERS: ATTEND Surgery
PROC: 0DBL8ZX Excision of Transverse Colon, Via Natural or Artificial Opening Endoscopic, Diagnostic (ICD-10-PCS; principal; 2020-11-21)
DX: K63.5 Polyp of colon (principal); K64.8 Other hemorrhoids; I10 Essential (primary) hypertension; I25.10 Atherosclerotic heart disease of native coronary artery without angina pectoris; Z86.010 Personal history of colon polyps

== ENCOUNTER 2021-02-05 06:03 | Day surgery (SDC) | payer MEDICARE, BC ==
[~2021-02-05] VITALS: Ht 182.9 cm; Wt 97.5 kg
[2021-02-05 07:40] VITALS: BP 120/56
== END 2021-02-05 08:17 | disposition home or self-care (01) ==
LOC: ORM 06:03
PROVIDERS: ATTEND Anesthesiology Pain Medicine
DX: M46.1 Sacroiliitis, not elsewhere classified (principal); M79.2 Neuralgia and neuritis, unspecified
CPT/HCPCS: 64450; G0260

== ENCOUNTER 2021-04-29 13:09 | Observation (INO) | payer MEDICARE, BC ==
[~2021-04-29] VITALS: Ht 182.9 cm; Wt 98.0 kg
[2021-04-29] VITALS (7 sets, daily range): BP systolic 122–146; BP diastolic 65–72
--- NOTE | 2021-04-29 13:30 | NUR ---
PT ESCORTED WITH TO ROOM OFR EVAL OF RAPID HR AND SOB SINCE 1100
[2021-04-29 14:07] LABS: HEMATOCRIT 45.2 % (39.0-50.0); IMMATURE GRANULOCYTES 0.2 % (0.0-5.0); MEAN CELL VOLUME 75.5 fL CALC (80.0-100.0); MEAN CORPUSCULAR HGB 23.4 pG CALC (26.0-32.0); NEUT# 4.59 thou/uL (1.82-7.42); RED BLOOD COUNT 5.99 mill/uL (4.70-6.10)
[2021-04-29 14:24] LABS: ALBUMIN 4.3 g/dL (3.2-5.0); ALKALINE PHOSPHATASE 62 u/l (38-126); ANION GAP 17 (6-22 (CALC)); BILIRUBIN, TOTAL 0.4 mg/dL (0.0-1.4); BUN 25 mg/dL (8-23); BUN/CREATININE RATIO 17 (12-20 (CALC)); CARBON DIOXIDE 21 mmol/l (22-30); CHLORIDE 107 mmol/l (95-108); CREATININE 1.5 mg/dL (0.7-1.3); GFR 45 ML/MIN (>=60 (CALC)); GFR FOR AFR.AMER. 54 ML/MIN (>=60 (CALC)); POTASSIUM 4.1 mmol/l (3.5-5.1); SGOT/AST 41 u/l (19-48); SODIUM 140 mmol/l (137-146); TOTAL PROTEIN 8.2 g/dL (6.3-8.2)
--- NOTE | 2021-04-29 14:33 | NUR ---
Reassessment of patient completed. No distress noted.
--- NOTE | 2021-04-29 15:30 | NUR ---
Reassessment of patient completed. No distress noted.
[2021-04-29] MEDS ORDERED: JARDIANCE10 MG PO (15:46)
[2021-04-29] MEDS ORDERED: VASCEPA1 GM PO (15:46)
[2021-04-29] MEDS ORDERED: HUMALOG100 UNIT/M SC (15:47)
[2021-04-29] MEDS ORDERED: OZEMPIC2 MG/1.51 SC (15:49)
[2021-04-29] MEDS ORDERED: LISINOPRIL10 MG PO (15:49)
[2021-04-29] MEDS ORDERED: TRESIBA FL200 UNIT/M SC (15:51)
--- NOTE | 2021-04-29 16:42 | NUR ---
REPORT CALLED TO MIAN IN ICU FOR HAND OFF VIA STRETCHER.
--- NOTE | 2021-04-29 17:00 | NUR ---
ESCORTED PATIENT TO ICU ROOM 1 AND CALLED REPORT TO MARLYN PRIOR TO TRANSPORT. BEDSIDE HAND OFF GIVEN AT TIME OF TRANSFER. PATIENT ALERT AND ORIENTED. SETTLED INTO ICU BED AND IN NAD.
--- NOTE | 2021-04-29 17:05 | NUR ---
RECEIVED PATIENT FROM ED AT THIS TIME. PATIENT ALERT AND ORIENTED X 3 AND DEINED ANY PAIN AT THIS TIME. PATIENT GIVEN ROOM ORIENTATION TO INCLUDE ISOLATION ORIENTATION. PATIENT TABLE GAMES FLOOR SUPERVISOR DONE AT THIS TIME SEE INTERVENITIONS. PATIENT HOOKED UP TO PLASTIC SHEETS FINISHING SUPERVISOR AND HEART RATE AT THIS TIME IS SHOWING SINUS RYTHAM AT 89 BP 140/70. SPO2 A THIS TIME IS 97% ON ROOM AIR. PATIENT DEINES ANY SHORTNESS OF BREATH BUT STATE HE HAS A SLIGHT HEADACHE EARLIER. PATIENT PRESENTS WITH LUNG ALL LUNG WOODARD CLEAR AND NO SIGH OF COUGH AT THIS TIME. PATIENT SKIN IS NEGATIVE FOR ANY OPEN WOUNDS. PATIENT STATES HE HAS HAD CATARAC SURGERY WITH IMPLANTS. SIDERAILS ARE UP X 2 AND CALL LIGHT IS WIHTIN REACH.
--- NOTE | 2021-04-29 17:17 | NUR ---
PATIENT GIVEN 1 UNIT OF HUMALOG IN BACK OF L ARM FOR GLUCOSE CHECK OF 186. EKG OBTAINED EKG REGARDING PATIENT CONVERTING BACK TO NORMAL SINUS RHYTHM AT THIS TIME. PATIENT CURRENTLY ON 10MG OF CARDIZEM AT THIS TME.
--- NOTE | 2021-04-29 17:38 | NUR ---
DR. FARMER CALLED AT THIS TIME REGARDING PATIENT CONVERTING TO SINUS RHYTHM AT THIS TIME. PER DR. FARMER CONTINUE TO TITRATE PATIENT PER PROTOCOL AND AT THIS TIME MOVE RATE TO 5MG. PATIENT TO CONTINUE TO BE MONITORED.
--- NOTE | 2021-04-29 20:30 | NUR ---
RESTING IN BED ON ROUNDS. ALERT AND ORIENTED. RESP NON-LABORED. RA O2 SAT 95% BREATH SOUNDS CLEAR THROUGHOUT LUNG WOODARD. CARDIZEM GTT INFUSING AT 5 MG/HR AND NS AT KVO. CARDROOM MANAGER SHOWS SR, HR 80'S. DISCUSSED PLAN OF CARE. DENIES NEEDS AT THIS TIME. CALL VALDERRAMA IN REACH.
--- NOTE | 2021-04-29 22:00 | NUR ---
VSS. RESP NON-LABORED. SR ON MONITOR.
[2021-04-30] VITALS (12 sets, daily range): BP systolic 122–192; BP diastolic 56–98
--- NOTE | 2021-04-30 00:05 | NUR ---
PAITENT AWAKE, WATCHING TV. NO COMPLAINTS VOICED. VSS. RESP NON-LABORED. SR ON MONITOR. CARDIZEM GTT CONTINUES AT 5 MG/HR.
[2021-04-30 05:47] LABS: HEMATOCRIT 41.7 % (39.0-50.0); HEMOGLOBIN 12.6 g/dl (14.0-18.0); MEAN CORPUSCULAR HGB CONC 30.2 g/dL CAL (32.0-36.0); RED BLOOD COUNT 5.49 mill/uL (4.70-6.10); RED CELL DISTRI WIDTH 18.6 % (11.5-15.5)
[2021-04-30 06:24] LABS: CREATININE 1.4 mg/dL (0.7-1.3); MAGNESIUM 1.8 mg/dL (1.6-2.3); POTASSIUM 4.2 mmol/l (3.5-5.1)
--- NOTE | 2021-04-30 08:20 | NUR ---
REPORT RECEIVED FROM NURSE AIDE EVALUATOR, PT RESTING QUIETLY ON STRETHER, NO COMPLAINTS, HEART RATE IS IN THE 80'S, STATES WANTS TO GO HOME TODAY. ADVISED WILL GIVE HIM HIS ATENOLOL EARLY AND SHUT OFF THE CARDIZEM DRIP AND SEE HOW HE DOES. STATES HE CAN GO HOME IF HEART RATE REMAINS STABLE FOR NEXT COUPLE OF HOURS.
[2021-04-30] MEDS ORDERED: TENORMIN PO (09:56)
--- NOTE | 2021-04-30 11:11 | NUR ---
PT REMAINS PAIN FREE AND HEART RATE REMAINS IN THE 70'S. ADVISED OF DISCHARGE AFTER LUNCH IF HEART RATE REMAINS CONTROLLED.
--- NOTE | 2021-04-30 13:20 | NUR ---
PT DISCHARGED WITH INST. AND W/C TO WAIT FOR DAUGHTER OUTSIDE. STATES DIDNT WANT TO SIT INSIDE ANY MORE. STATES HE JUST CALLED AND SPOKE WITH DAUGHTER AND SHE WOULD BE HERE IN A FEW MINUTES.
== END 2021-04-30 13:30 | disposition home or self-care (01) ==
LOC: ED 13:09 → ED-I 14:53 → ED 14:53 → ED-I 15:15 → ED 15:59 → ICU 16:00
PROVIDERS: Family Medicine; ADMIT Hospitalist; ATTEND Hospitalist
DX: I48.20 Chronic atrial fibrillation, unspecified (principal); I12.9 Hypertensive chronic kidney disease with stage 1 through stage 4 chronic kidney disease, or unspecified chronic kidney disease; E11.22 Type 2 diabetes mellitus with diabetic chronic kidney disease; N18.4 Chronic kidney disease, stage 4 (severe); I25.10 Atherosclerotic heart disease of native coronary artery without angina pectoris; T44.7X6A Underdosing of beta-adrenoreceptor antagonists, initial encounter; Z91.128 Patient's intentional underdosing of medication regimen for other reason; G47.33 Obstructive sleep apnea (adult) (pediatric); E78.5 Hyperlipidemia, unspecified; E03.9 Hypothyroidism, unspecified; Z95.5 Presence of coronary angioplasty implant and graft; Z87.891 Personal history of nicotine dependence; Z79.82 Long term (current) use of aspirin; Z20.822 Contact with and (suspected) exposure to COVID-19